=== PATIENT | female | born 1940 | race African-American/Black ===

== ENCOUNTER 2016-07-11 10:28 | Emergency (ER) | payer MEDICARE ==
[~2016-07-11] VITALS: Ht 160 cm; Wt 117.9 kg
[~2016-07-11 10:28] MED LIST: ACYCLOVIR400 MG ORAL; ALBUTEROL SULF8.5 GM INH; ALBUTEROL2.5 MG/3 M HHN; ATARAX25 MG ORAL; AZITHROMYCIN500 M3 IVPB; CEPHALEXIN500 MG ORAL; CEPHALEXIN500 MG PO; CLINDAMYCIN HC300 MG ORAL; CLOTRIMAZOLE15 GM TOPIC; DIAZEPAM10 MG PO; DUONEB 0.5-3(2.53 ML HHN; FLUCONAZOLE100 MG ORAL; LEVAQUIN500 MG ORAL; LEVAQUIN750 MG ORAL; LYRICA75 M1 ORAL; NORCO 5-325 TA1 EACH ORAL; NYSTATIN OINT15 GM TOPIC; PREDNISONE20 MG ORAL; PREDNISONE20 MG PO; ROZEREM8 MG PO; SOLU-MEDRO40 MG/1 M2 IVP; TIZANIDINE HCL4 MG ORAL; TRAMADOL HCL50 MG ORAL; UNOBMED; VICODIN1 TA1 ORAL; ZITHROMAX250 MG PO; [UNRECOGNIZED DRUG - OTHER] TOPIC
[2016-07-11 10:50] VITALS: BP 141/83
[2016-07-11 12:30] LABS: ALANINE AMINOTRANSFERASE 12 U/L (3-33); ALBUMIN/GLOBULIN RATIO 1.2 (1.0-2.7); ANION GAP 12 (5-15); ASPARTATE AMINO TRANSFERASE 13 U/L (5-40); CALCIUM 9.8 mg/dL (8.6-10.2); CARBON DIOXIDE 28 mEQ/L (20-30); CHLORIDE 99 mEQ/L (98-107); CREATININE 1.7 mg/dL (0.5-0.9); HEMOLYSIS 1; LIPASE 38 U/L (< 60); SODIUM 139 mEQ/L (135-145); TOTAL PROTEIN 7.3 g/dL (6.6-8.7)
[2016-07-11 12:49] LABS: EOSINOPHILS % (AUTO) 7.6 % (0.0-3.0); LYMPHOCYTES % (AUTO) 25.8 % (20.0-45.0); MEAN CORPUSCULAR HEMOGLOBIN 30.5 PG (27.0-31.0); MEAN CORPUSCULAR HGB CONC 32.2 G/DL (32.0-36.0); MEAN CORPUSCULAR VOLUME 95 FL (80-99); MEAN PLATELET VOLUME 6.5 FL (6.5-10.1); MONOCYTES % (AUTO) 12.3 % (1.0-10.0); NEUTROPHILS % (AUTO) 53.2 % (45.0-75.0); PLATELET COUNT 330 K/UL (150-450); RED BLOOD COUNT 3.83 M/UL (4.20-5.40); RED CELL DISTRIBUTION WIDTH 13.3 % (11.6-14.8); WHITE BLOOD COUNT 4.8 K/UL (4.8-10.8)
[2016-07-11 13:15] VITALS: BP 144/78
--- NOTE | 2016-07-11 14:57 | Emergency Room Report ---
History of Present Illness General Chief Complaint: Pain Source: Patient Present Illness HPI Patient presents with complaints of facial reports of general weakness Patient complaint of left flank pain Left upper shoulder pain Patient reports decreased urination Denies any headache or visual changes denies any fall or trauma Patient ambulate with a cane denies any focal weakness however complains of left -sided pain from the shoulder down to the foot Allergies: Coded Allergies: No Known Allergies (Verified , 12/24/08) Patient History Past Medical History: see triage record Pertinent Family History: none Reviewed Nursing Documentation: PMH: Agreed, PSxH: Agreed Nursing Documentation-PMH Past Medical History: No History, Except For Hx Cardiac Problems: Yes Hx Hypertension: Yes Hx Pacemaker: No Hx Asthma: Yes Hx COPD: Yes Hx Diabetes: No - "Borderline" Hx Cancer: No Hx Gastrointestinal Problems: Yes - appendectomy Hx Dialysis: No Hx Neurological Problems: No Hx Cerebrovascular Accident: No Hx Seizures: No Review of Systems All Other Systems: negative except mentioned in HPI Physical Exam Vital Signs Date Time Temp Pulse Resp B/P Pulse Ox O2 Delivery O2 Flow Rate FiO2 07/11/16 10:37 97.9 87 18 141/83 96 Room Air Sp02 EP Interpretation: reviewed, normal General Appearance: well appearing, no apparent distress Head: normocephalic, atraumatic Eyes: bilateral eye EOMI, bilateral eye PERRL ENT: hearing grossly normal, TMs + canals normal, uvula midline, dry mucus membranes Neck: full range of motion, supple, no meningismus, no bony tend Respiratory: lungs clear, normal breath sounds, no rhonchi, no respiratory distress, no retraction, no accessory muscle use Cardiovascular #1: normal peripheral pulses, regular rate, rhythm, no edema, no gallop, no JVD, no murmur Gastrointestinal: normal bowel sounds, non tender, soft, no mass, no organomegaly, non-distended, no guarding, no hernia, no pulsatile mass, no rebound Genitourinary: no CVA tenderness Musculoskeletal: other - No obvious focal weakness Neurologic: oriented x3, responsive, oracle r12 developer III-XII nml as tested, motor strength/ tone normal, sensory intact Psychiatric: mood/affect normal Skin: normal color, no rash, warm/dry, palpation normal Lymphatic: normal inspection, no adenopathy Medical Decision Making Diagnostic Impression: Primary Impression: Renal insufficiency ER Course Patient is a fairly complex patient with multiple differential to consideration including but not limited to cardiac cardiopulmonary and vascular emergencies Patient's blood work reveals significant change from previous kidney function worsening Given her age and risk factors patient requires further hydration repeat workup and further evaluation for the renal insufficiency secondary to insurance purposes patient requires transfer Labs Test 07/11/16 12:05 White Blood Count 4.8 K/UL (4.8-10.8) Red Blood Count 3.83 M/UL (4.20-5.40) Hemoglobin 11.7 G/DL (12.0-16.0) Hematocrit 36.4 % (37.0-47.0) Mean Corpuscular Volume 95 FL (80-99) Mean Corpuscular Hemoglobin 30.5 PG (27.0-31.0) Mean Corpuscular Hemoglobin Concent 32.2 G/DL (32.0-36.0) Red Cell Distribution Width 13.3 % (11.6-14.8) Platelet Count 330 K/UL (150-450) Mean Platelet Volume 6.5 FL (6.5-10.1) Neutrophils (%) (Auto) 53.2 % (45.0-75.0) Lymphocytes (%) (Auto) 25.8 % (20.0-45.0) Monocytes (%) (Auto) 12.3 % (1.0-10.0) Eosinophils (%) (Auto) 7.6 % (0.0-3.0) Basophils (%) (Auto) 1.0 % (0.0-2.0) Sodium Level 139 mEQ/L (135-145) Potassium Level 5.0 mEQ/L (3.4-4.9) Chloride Level 99 mEQ/L (98-107) Carbon Dioxide Level 28 mEQ/L (20-30) Anion Gap 12 (5-15) Blood Urea Nitrogen 43 mg/dL (7-23) Creatinine 1.7 mg/dL (0.5-0.9) Estimat Glomerular Filtration Rate mL/min (>60) Glucose Level 97 mg/dL (74-106) Calcium Level 9.8 mg/dL (8.6-10.2) Total Bilirubin 0.3 mg/dL (0.0-1.2) Aspartate Amino Transf (AST/SGOT) 13 U/L (5-40) Alanine Aminotransferase (ALT/SGPT) 12 U/L (3-33) Alkaline Phosphatase 110 U/L (35-104) Total Protein 7.3 g/dL (6.6-8.7) Albumin 4.0 g/dL (3.5-5.2) Globulin 3.3 g/dL Albumin/Globulin Ratio 1.2 (1.0-2.7) Lipase 38 U/L (< 60) Rhythm Strip Diag. Results EP Interpretation: yes Rate: 77 Rhythm: NSR, no PVC's, no ectopy CT/MRI/US Diagnostic Results CT/MRI/US Diagnostic Results : Impression bilateral kidney ultrasoundImpression: Bilateral renal cysts. Negative exam otherwise Last Vital Signs Date Time Temp Pulse Resp B/P Pulse Ox O2 Delivery O2 Flow Rate FiO2 07/11/16 13:15 97.9 82 16 144/78 99 Room Air Status: improved Disposition: XFER SHT-TRM HOSP Condition: Serious Referrals: NON PHYSICIAN (PCP) MARILEE HOPKINS D.O. Jul 11, 2016 14:57
[2016-07-11 16:41] VITALS: BP 128/69
[2016-07-11 16:43] VITALS: BP 128/69
--- NOTE | 2016-07-13 08:28 | Diagnostic Imaging Report ---
Indication:Left flank pain. Hypertension Technique: Grayscale and duplex Doppler imaging of the kidneys performed. Comparison: None Findings: The size, contour, and echogenicity of both kidneys are within normal limits. Right kidney is 10.5 CM. Left kidney 9.6 CM. Bilateral renal cysts are present. On the left the cyst is small measuring one CM. On the right the cyst measures approximately 1.6 cm. There is no hydronephrosis. The IVC and urinary bladder are unremarkable. Impression: Bilateral renal cysts. Negative exam otherwise
== END 2016-07-11 16:43 | disposition short-term general hospital (02) ==
LOC: EMR 11:03
DX: N28.9 Disorder of kidney and ureter, unspecified (principal); Z90.89 Acquired absence of other organs; I10 Essential (primary) hypertension; J45.909 Unspecified asthma, uncomplicated
CPT/HCPCS: 36415; 76775; 80053; 83690; 85025

== ENCOUNTER 2016-07-30 09:29 | Emergency (ER) | payer MEDICARE, OTHER ==
[~2016-07-30] VITALS: Ht 162.6 cm; Wt 66.7 kg
[2016-07-30] MEDS ORDERED: NORCO 5-325 TA1 EACH ORAL (09:56)
[2016-07-30] MEDS ORDERED: Norco 5mg/325mg tab ORAL ONE (10:00)
--- NOTE | 2016-07-30 10:38 | Emergency Room Report ---
History of Present Illness General Chief Complaint: Pain Source: Patient Present Illness HPI Patient has a history of chronic knee pain. Patient also has history of asthma. Patient presents emergency department today complaining of knee pain and requesting pain medications. Patient states that she has had aspiration of her knee in the past. She states that she did not fall on it does not have any trauma. She is walking with a limp and a cane. Symptoms are noted to be moderate. Patient denies any leg swelling. Patient also has history of asthma and as a little short of breath although she states that is not changed from usual. She denies any chest pain. No other complaints were noted. Symptoms noted to be moderate. Patient's primary care physician is Dr. Moncho Martin.No other modifying factors. No other associated signs and symptoms. No other complaints were noted. Allergies: Coded Allergies: No Known Allergies (Verified , 12/24/08) Patient History Past Medical History: HTN, CAD, asthma, COPD Past Surgical History: none Pertinent Family History: none Social History: Reports: smoking Reviewed Nursing Documentation: PMH: Agreed, PSxH: Agreed Nursing Documentation-PMH Past Medical History: No History, Except For Hx Cardiac Problems: Yes Hx Hypertension: Yes Hx Pacemaker: No Hx Asthma: Yes Hx COPD: Yes Hx Diabetes: No - "Borderline" Hx Cancer: No Hx Gastrointestinal Problems: Yes - appendectomy Hx Dialysis: No Hx Neurological Problems: No Hx Cerebrovascular Accident: No Hx Seizures: No Review of Systems All Other Systems: negative except mentioned in HPI Physical Exam Vital Signs Date Time Temp Pulse Resp B/P Pulse Ox O2 Delivery O2 Flow Rate FiO2 07/30/16 09:37 98.2 83 17 169/90 95 Room Air Sp02 EP Interpretation: reviewed, normal General Appearance: normal inspection, well appearing, no apparent distress, alert Head: atraumatic Eyes: bilateral eye normal inspection ENT: normal ENT inspection, hearing grossly normal, normal voice Neck: normal inspection, full range of motion, supple, no bony tend Respiratory: normal inspection, no respiratory distress, no retraction, other - mild expiratory wheezing Cardiovascular #1: regular rate, rhythm, no edema Gastrointestinal: normal inspection, normal bowel sounds, non tender, soft, no guarding, no hernia Genitourinary: no CVA tenderness Musculoskeletal: back normal, swelling - Right knee, and tender right knee no redness noted. Neurologic: normal inspection, alert, responsive, speech normal Psychiatric: normal inspection, judgement/insight normal, mood/affect normal Skin: normal inspection, normal color, no rash Procedures Splinting Splinting : Consent: Verbal Location: right knee Pre-Made Type: KHANH wrap Pre-Proc Neuro Vasc Exam: normal Post-Proc Neuro Vasc Exam: normal Patient Tolerated: Well Complications: None Medical Decision Making Diagnostic Impression: Primary Impression: Pain Additional Impressions: Effusion of bursa of knee Strain of knee and leg, right ER Course Patient presents emergency department today complaining of chronic right knee pain with acute exacerbation. Differential considerations include fracture dislocation versus strain. Given patient's presentation I felt that patient require pain medication and Khanh bandage. Given that there has been no recent trauma I do not feel that x-rays were indicated. There is a small amount of swelling and likely a small effusion but I do not feel that any arthrocentesis is indicated this time as this likely only a small amount of fluid. Recommend outpatient followup with Dr. Moncho Martin. Patient was given a prescription for pain medications.Patient is advised to follow up with primary doctor in 2-3 days and return the emergency room for any worsening symptoms and as needed. Last Vital Signs Date Time Temp Pulse Resp B/P Pulse Ox O2 Delivery O2 Flow Rate FiO2 07/30/16 09:37 98.2 83 17 169/90 95 Room Air Status: improved Disposition: HOME, SELF-CARE Condition: Stable Scripts Hydrocodone Bit/Acetaminophen 5-325* (NORCO 5-325*) 1 Each Tablet 1 TAB ORAL Q6H Y for For Pain, #20 TAB 0 Refills Prov: ASHLEY MORFIN M.D. 07/30/16 Referrals: [facility],REFERRING (PCP) Patient Instructions: Arthritis, Knee Effusion ASHLEY MORFIN M.D. Jul 30, 2016 10:38
[2016-07-30 10:40] VITALS: BP 169/90
[2016-07-30 10:42] VITALS: BP 169/90
== END 2016-07-30 10:45 | disposition home or self-care (01) ==
LOC: EMR 10:08
DX: S86.811A Strain of other muscle(s) and tendon(s) at lower leg level, right leg, initial encounter (principal); X58.XXXA Exposure to other specified factors, initial encounter; Y92.89 Other specified places as the place of occurrence of the external cause; G89.29 Other chronic pain; M25.461 Effusion, right knee; I10 Essential (primary) hypertension; J44.9 Chronic obstructive pulmonary disease, unspecified; Z90.49 Acquired absence of other specified parts of digestive tract
CPT/HCPCS: 29530; 99283

== ENCOUNTER 2020-03-02 12:35 | Emergency (ER) | payer MEDICARE ==
[~2020-03-02] VITALS: Ht 157.5 cm; Wt 131.5 kg
[~2020-03-02 12:35] MED LIST changes: +ALBUTEROL2.5 MG/3 M INH; +BENZONATATE200 MG ORAL; +BP MEDICATION; +CARDIZEM CD180 MG ORAL; +CEPHALEXIN500 M1 ORAL; +HYDROXYZINE HCL25 M1 PO; +LEVOFLOXACIN500 MG ORAL; +LOSARTAN POTASS50 MG ORAL; +METFORMIN HCL500 M1 ORAL; +METFORMIN HCL500 M4 ORAL; +MONTELUKAST SOD10 MG ORAL; +THEOPHYLLINE400 MG PO; +antibiotics
--- NOTE | 2020-03-02 12:59 | NUR ---
ED Nurse Note: pt. aaox4. ambulatory. pt. came in to er from home. per pt. she right arm weakness and right hand numbess, and right knee swollen. no resp distress noted at this time
[2020-03-02 13:39] VITALS: BP 147/80
--- NOTE | 2020-03-02 13:49 | Emergency Room Report ---
History of Present Illness General Chief Complaint: General Complaint Present Illness HPI 80-year-old female presents to the emergency department complaining of 9 out of 10 severity pain and the right shoulder, right arm and right leg x1 week. Patient also reports history of DVT in the right leg. Patient reports she was taking higher dose of Eliquis but she is dropped down for the past 2 weeks. Patient has a history of high blood pressure she takes hydrochlorothiazide and lisinopril. Patient does report being noncompliant with her medications and does not take hydrochlorothiazide regularly. She also reports history of COPD. She describes using a nebulized apparatus at home as needed she also reports having inhaled steroid and prednisone for which she only uses when she needs to. Patient reports lately she has been noticing dyspnea on exertion. She reports one episode of chest pain that she says lasted 35 minutes and states that that was yesterday. She denies dizziness. She reports weakness in the right arm as well as numbness and tingling. She denies skin color changes. She denies fevers or chills. She reports some swelling in the bilateral lower extremities. She denies trauma or fall. She denies midline neck or back pain. She reports she is right-hand dominant. She denies previous shoulder injuries. She reports that her arm pain is exacerbated with attempts to use her right arm especially raising it. PT. denies facial droop, slurred speech, memory changes, or visual changes. She denies palpitations. She reports she has a caregiver. No other aggravating or relieving factors. Allergies: Coded Allergies: No Known Allergies (Verified , 12/24/08) COVID-19 Screening Contact w/high risk pt: No Experienced COVID-19 symptoms?: No COVID-19 Testing performed MITER OPERATOR: No COVID-19 Screening: Negative COVID-19 COVID-19 Testing Source: [facility] in [place] Patient History Past Medical History: see triage record Past Surgical History: none Pertinent Family History: none Now: No Reviewed Nursing Documentation: PMH: Agreed; PSxH: Agreed Nursing Documentation-PMH Hx Cardiac Problems: Yes Hx Hypertension: Yes Hx Pacemaker: No Hx Asthma: Yes Hx COPD: Yes Hx Diabetes: No - "Borderline" Hx Cancer: No Hx Gastrointestinal Problems: Yes - appendectomy Hx Dialysis: No Hx Neurological Problems: No - arithtis Hx Cerebrovascular Accident: No Hx Seizures: No Review of Systems All Other Systems: negative except mentioned in HPI Physical Exam Vital Signs Date Time Temp Pulse Resp B/P (MAP) Pulse Ox O2 Delivery O2 Flow Rate FiO2 03/02/20 12:59 98.2 92 20 147/80 (102) 94 Room Air Medical Decision Making PA Attestation Dr. Rosario is my supervising Physician whom patient management has been discussed with. 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 Qualified Codes: I82.531 - Chronic embolism and thrombosis of right popliteal vein Additional Impressions: Knee effusion, right Prepatellar bursitis, right knee Shoulder pain, right Qualified Codes: M25.511 - Pain in right shoulder Degenerative arthritis of right shoulder region Qualified Codes: M19.011 - Primary osteoarthritis, right shoulder Degenerative arthritis of right knee Qualified Codes: M17.11 - Unilateral primary osteoarthritis, right knee ER Course 80-year-old female presents to the emergency department complaining of 9 out of 10 severity pain and the right shoulder, right arm and right leg x1 week. Patient also reports history of DVT in the right leg. Patient reports she was taking higher dose of Eliquis but she is dropped down for the past 2 weeks. Patient has a history of high blood pressure she takes hydrochlorothiazide and lisinopril. Patient does report being noncompliant with her medications and does not take hydrochlorothiazide regularly. She also reports history of COPD. She describes using a nebulized apparatus at home as needed she also reports having inhaled steroid and prednisone for which she only uses when she needs to. Patient reports lately she has been noticing dyspnea on exertion. She reports one episode of chest pain that she says lasted 35 minutes and states that that was yesterday. She denies dizziness. She reports weakness in the right arm as well as numbness and tingling. She denies skin color changes. She denies fevers or chills. She reports some swelling in the bilateral lower extremities. She denies trauma or fall. She denies midline neck or back pain. She reports she is right-hand dominant. She denies previous shoulder injuries. She reports that her arm pain is exacerbated with attempts to use her right arm especially raising it. PT. denies facial droop, slurred speech, memory changes, or visual changes. She denies palpitations. She reports she has a caregiver. No other aggravating or relieving factors. Ddx considered but are not limited to Cellulitis, DVT, varicose vein, PAD,Venous insufficiency, shoulder impingement syndrome, rotator cuff injury, labral tear, tendinitis, arthritis stroke just to name a few Vital signs: are WNL, pt. is afebrile H&PE are most consistent with need to R/O DVT in upper and lower extremity. No evidence of infection. No motor weakness. equal pediatric associate strength. Pain with ROM of affected extremities. ORDERS: CMP, CBC with Diff, PT/PTT: all unremarkable other than mild anemia ED INTERVENTIONS: -NOrco 5mg PO --Upon reevaluation and review of her imaging results patient reports she is feeling much better her pain has been resolved at this time. DISCHARGE: At this time pt. is stable for d/c to home. Will provide printed patient care instructions, and any necessary prescriptions. Care plan and follow up instructions have been discussed with the patient prior to discharge. Labs Test 03/02/20 14:35 03/02/20 15:22 White Blood Count 7.3 K/UL (4.8-10.8) Red Blood Count 3.23 M/UL (4.20-5.40) Hemoglobin 8.2 G/DL (12.0-16.0) Hematocrit 28.7 % (37.0-47.0) Mean Corpuscular Volume 89 FL (80-99) Mean Corpuscular Hemoglobin 25.5 PG (27.0-31.0) Mean Corpuscular Hemoglobin Concent 28.7 G/DL (32.0-36.0) Red Cell Distribution Width 17.7 % (11.6-14.8) Platelet Count 387 K/UL (150-450) Mean Platelet Volume 5.2 FL (6.5-10.1) Neutrophils (%) (Auto) 47.3 % (45.0-75.0) Lymphocytes (%) (Auto) 34.4 % (20.0-45.0) Monocytes (%) (Auto) 9.6 % (1.0-10.0) Eosinophils (%) (Auto) 7.5 % (0.0-3.0) Basophils (%) (Auto) 1.3 % (0.0-2.0) Sodium Level 140 MMOL/L (136-145) Potassium Level 4.6 MMOL/L (3.5-5.1) Chloride Level 107 MMOL/L (98-107) Carbon Dioxide Level 24 MMOL/L (21-32) Anion Gap 9 mmol/L (5-15) Blood Urea Nitrogen 22 mg/dL (7-18) Creatinine 1.0 MG/DL (0.55-1.30) Estimat Glomerular Filtration Rate > 60 mL/min (>60) Glucose Level 93 MG/DL (74-106) Calcium Level 9.5 MG/DL (8.5-10.1) Troponin I 0.000 ng/mL (0.000-0.056) Prothrombin Time 11.1 SEC (9.30-11.50) Prothromb Time International Ratio 1.0 (0.9-1.1) Activated Partial Thromboplast Time 23 SEC (23-33) EKG Diagnostic Results Troponin ordered: Yes When was troponin ordered?: Mar 02, 2020 EKG Time: 13:52 Rate: normal Rhythm: NSR ST Segments: no acute changes ASA given to the pt in ED: No PA Scribe Text This Interpretation was scribed by MU Myles. Chest X-Ray Diagnostic Results Chest X-Ray Diagnostic Results : Chest X-Ray Ordered: Yes # of Views/Limited/Complete: 1 View EP Interpretation: Yes PA Xray: Interpretation reviewed, by supervising MD, and agrees with findings. Interpretation: no consolidation, no effusion, no pneumothorax, no acute cardiopulmonary disease Impression: No acute disease Electronically Signed by: Flory Myles PA-C Other X-Ray Diagnostic Results Other X-Ray Diagnostic Results #1: X-Ray ordered: Right Knee # of Views/Limited Vs Complete: 3 View Indication: Pain EP Interpretation: Yes PA Xray: Interpretation reviewed, by supervising MD, and agrees with findings. Interpretation: no dislocation, no fractures, other - Anterior ST swelling Impression: No acute disease Electronically Signed by: Flory Myles PA-C Other X-Ray Diagnostic Results #2: X-Ray ordered: Right Shoulder # of Views/Limited Vs Complete: 3 View Indication: Pain EP Interpretation: Yes PA Xray: Interpretation reviewed, by supervising MD, and agrees with findings. Interpretation: no dislocation, no soft tissue swelling, no fractures Impression: No acute disease Electronically Signed by: Flory Myles PA-C CT/MRI/US Diagnostic Results CT/MRI/US Diagnostic Results #1: Imaging Test Ordered: Right lower extremity venous duplex ultrasound Impression " Nonocclusive thrombus involving the right distal femoral vein and popliteal vein, age-indeterminate but favored to be chronic given somewhat eccentric morp hology. Please correlate clinically. Complex fluid in the prepatellar soft tissues. This may represent prepatellar bursitis ." --Per official radiology report- Please see report for specific details. CT/MRI/US Diagnostic Results #2: Imaging Test Ordered: Right upper extremity venous duplex US. Impression " negative for acute DVT ." --Per official radiology report- Please see report for specific details. Last Vital Signs Date Time Temp Pulse Resp B/P (MAP) Pulse Ox O2 Delivery O2 Flow Rate FiO2 03/02/20 13:39 98.2 20 147/80 94 Room Air 03/02/20 12:59 92 Status: improved Disposition: HOME, SELF-CARE Condition: Stable Scripts Diclofenac Sodium (VOLTAREN) 100 Gm Gel..gram. 1 APPLIC TP THREE TIMES A DAY, #100 GM Prov: Flory Myles 03/02/20 Hydrocodone/Acetaminophen 5-325* (HYDROCODONE/ACETAMINOPHEN 5-325*) 1 Each Tablet 1 TAB ORAL Q8H PRN for For Pain, #12 TAB 0 Refills Prov: Flory Myles 03/02/20 Referrals: Anirudh Fernandez [facility] Patient Instructions: Bursitis, [id number], Deep Vein Thrombosis, Joint Pain, [id number] Additional Instructions: Please take copies of your ultrasound/imaging results with you to your follow-up appointment with your primary care provider. Take medications as directed. !! Do not drink alcohol, drive, or operate heavy machinery while taking Tinnie as this may cause drowsiness. Follow up with a Primary Care Provider in 3-5 days, even if your symptoms gill ve resolved. --Please review list of primary care clinics, if you do not already have a primary care provider Return sooner to ED if new symptoms occur, or current symptoms become worse. - Please note that this Emergency Department Report was dictated using Gumiyorecycling manager technology software, occasionally this can lead to erroneous entry secondary to interpretation by the dictation equipment. Flory Myles Mar 02, 2020 13:49
[2020-03-02 14:46] LABS: BASOPHILS % (AUTO) 1.3 % (0.0-2.0); EOSINOPHILS % (AUTO) 7.5 % (0.0-3.0); HEMATOCRIT 28.7 % (37.0-47.0); HEMOGLOBIN 8.2 G/DL (12.0-16.0); LYMPHOCYTES % (AUTO) 34.4 % (20.0-45.0); MEAN CORPUSCULAR VOLUME 89 FL (80-99); MONOCYTES % (AUTO) 9.6 % (1.0-10.0); NEUTROPHILS % (AUTO) 47.3 % (45.0-75.0); PLATELET COUNT 387 K/UL (150-450); RED BLOOD COUNT 3.23 M/UL (4.20-5.40); RED CELL DISTRIBUTION WIDTH 17.7 % (11.6-14.8); WHITE BLOOD COUNT 7.3 K/UL (4.8-10.8)
[2020-03-02 14:55] LABS: ANION GAP 9 mmol/L (5-15); BLOOD UREA NITROGEN 22 mg/dL (7-18); CALCIUM 9.5 MG/DL (8.5-10.1); CARBON DIOXIDE 24 MMOL/L (21-32); CHLORIDE 107 MMOL/L (98-107); POTASSIUM 4.6 MMOL/L (3.5-5.1); SODIUM 140 MMOL/L (136-145)
--- NOTE | 2020-03-02 15:14 | Diagnostic Imaging Report ---
Indication: Shoulder pain Technique: 2 views of the right shoulder Comparison: None Findings: Limited evaluation as only 2 views were obtained. Bones are demineralized. No appreciable fracture. There are degenerative changes of the glenohumeral joint with moderate-sized humeral head osteophytes. There are also degenerative changes of the acromioclavicular joint. Degenerative changes are noted in the spine. No radiopaque foreign body identified. IMPRESSION: Osteopenia and degenerative changes. No acute fracture or dislocation appreciated.
[2020-03-02] MEDS: HYDROcodone/Acetamin 5/325 tab ORAL ONE (15:17)
--- NOTE | 2020-03-02 15:44 | Diagnostic Imaging Report ---
Indication: Right arm pain and swelling Technique: Multiplanar grayscale with color and duplex Doppler evaluation of the veins of the right upper extremity. Comparison: None Findings: Right internal jugular vein is patent and normally compressible. Temperature is normal color Doppler flow. Imaged portions of the right subclavian vein are patent with normal color and Doppler flow. Portions of the right axillary vein are patent and normally compressible and demonstrate normal color Doppler flow. Imaged portions of the right brachial vein demonstrate normal color flow and normal compressibility. Imaged portions of the cephalic vein demonstrate normal compression with preserved color Doppler flow. Imaged portions of the basilic vein demonstrate normal compression with preserved color Doppler flow. It is from veins appear patent as well. IMPRESSION: No evidence of deep venous thrombosis involving the veins of the right upper extremity. This corresponds with the preliminary report generated by the scanning geospatial information technologist.
--- NOTE | 2020-03-02 15:46 | Diagnostic Imaging Report ---
Indication: Knee pain Technique: 3 views of the right knee Comparison: 07/11/2011 Findings: There are degenerative changes of the right knee which are progressed compared to the prior exam. There is significant joint space narrowing in the medial compartment with apparent near [id number] apposition. There is been development of partial osteophytes in this compartment as well. There is a small osteophyte at the tibial spine. Patellofemoral joint space narrowing is also seen. No acute fracture is identified. No suprapatellar joint effusion. No radiopaque foreign body. IMPRESSION: No acute fracture or dislocation. Progressive degenerative changes compared to prior exam of 07/11/2011 with moderate to severe osteoarthrosis in the medial compartment.
--- NOTE | 2020-03-02 15:47 | Diagnostic Imaging Report ---
Indication: Chest pain Technique: XRAY Chest 1v Comparison: 10/21/2015 Findings: Mild cardiomegaly is stable. Mediastinal contours are sharp. There is some vascular crowding at the bases. No definite consolidation. No pleural effusion or pneumothorax. There are degenerative changes in the spine and shoulders. No acute osseous abnormality appreciated. IMPRESSION: Cardiomegaly and vascular crowding in the bases. No focal airspace consolidation, pleural effusion, pneumothorax or definite radiographic evidence to suggest pulmonary edema.
--- NOTE | 2020-03-02 16:43 | Diagnostic Imaging Report ---
Indication: Right leg pain and swelling Technique: Grayscale and duplex Doppler imaging of the veins in right lower lower extremity performed in real time utilizing compression and augmentation. Comparison: None Findings: Technique limited evaluation due to body habitus/obesity. Imaged portions of the right common femoral vein are patent with normal compressibility and normal color Doppler flow. Imaged portions of the right greater saphenous vein are patent with normal color Doppler flow. The proximal and mid portions of the femoral vein are patent and normally compressible with normal color flow. There is some eccentric echogenic thrombus noted within the distal right femoral vein and right popliteal vein. Some color flow is noted around this thrombus. Incidental note of somewhat complex fluid in the prepatellar soft tissues. IMPRESSION: Nonocclusive thrombus involving the right distal femoral vein and popliteal vein, age indeterminate but favored to be chronic given somewhat eccentric morphology. Please correlate clinically. Complex fluid in the prepatellar soft tissues. This may represent prepatellar bursitis. Findings discussed with treating ER [facility] Dean.
[2020-03-02] MEDS ORDERED: HYDROCODON-ACE1 EA15 ORAL (17:14)
[2020-03-02] MEDS ORDERED: VOLTAREN100 G1 TP (17:14)
[2020-03-02 17:46] VITALS: BP 132/75
--- NOTE | 2020-03-02 17:46 | NUR ---
ER DISCHARGE NOTE: Patient is cleared to be discharged per ERMD, pt is aox4, on room air, with stable vital signs. pt was given dc and prescription instructions, pt was able to verbalize understanding, pt id band and iv site removed without complications. pt is able to ambulate with steady gait. pt took all belongings.
== END 2020-03-02 17:46 | disposition home or self-care (01) ==
LOC: EMR 14:59
DX: I82.531 Chronic embolism and thrombosis of right popliteal vein (principal); M25.461 Effusion, right knee; M70.41 Prepatellar bursitis, right knee; M25.511 Pain in right shoulder; M19.011 Primary osteoarthritis, right shoulder; M17.11 Unilateral primary osteoarthritis, right knee; I11.9 Hypertensive heart disease without heart failure; J44.9 Chronic obstructive pulmonary disease, unspecified; Y93.9 Activity, unspecified; Z79.01 Long term (current) use of anticoagulants
CPT/HCPCS: 36415; 71045; 80048; 84484; 85025; 85610; 85730; 93005; 93971; 99284